=== PATIENT | female | born 1960 | race Caucasian/White ===

== ENCOUNTER 2025-07-29 00:30 | Day surgery (SDC) | payer BC, SELFPAY ==
[2025-07-16 09:29] VITALS: BMI 27.4
--- OUTSIDE RECORDS SUMMARY | 2025-07-29 00:33 | XMS_ITS | Clinical Summary ---
Author Organization [facility] Address [address] [place] [address] Care Team Providers Care Bread Wrapping Machine Feeder Name Role Phone Radha Galeano DO Unavailable [phone] Source Comments [facility],non-owned Affiliates and Associated Physician Practices is amultiple site organization consisting of ambulatory clinics and hospital sitesin [place], [place], [place] and [place]. This disclosure is being madepursuant to the Care Everywhere program and may not contain all information available regarding this patient. Last updated 18.[facility] Allergies No known active allergies Medications * Be aware that medications may not be up to date on this document. Alwaysverify current medications with the patient. loteprednol (Lotemax) 0.5 % ophthalmic gel Instill into right eye as directed 04/27/2023 Active [place]-3 Fatty Acids (fish oil) 1000 MG capsule Take 1 (one) capsule by mouth once daily 06/30/2022 Active Multiple Vitamins-Minera ls (WOMENS 50+ MULTI VITAMIN PO) Take 1 tablet by mouth once daily 06/30/2022 Active Active Problems No known active problems Family History Medical History Relation Name Comments Other Father asbestosis Relation Name Status Comments Father Social History Tobacco Use Types Packs/Day Years Used Date Smoking Tobacco: Never Passive Smoke Exposure: Yes Smokeless Tobacco: Never Tobacco Cessation:Counseling Given: Not Answered Alcohol Use Standard Drinks/Week Comments Yes 0 (1 standard drink = 0.6 oz pur e alcohol) 2/Monthly PHQ-2 Answer Date Recorded Patient Health Questionnaire-2 Score 0 08/13/2023 Comments No Sex and Gender Information Value Date Recorded Sex Assigned at Not on file Legal Sex Female 11:18 AM CDT Gender Identity Not on file Sexual Orientation Not on file Last Filed Vital Signs Vital Sign Reading Time Taken Comments Blood Pressure 110/82 08/14/2023 10:41 AM CDT Pulse 70 10/10/2022 10:12 AM SWIMMING PROFESSOR Temperature 35.9 C (96.7 F) 08/14/2023 10:41 AM CDT Respiratory Rate - - Oxygen Saturation 98% 10/10/2022 10:12 AM SWIMMING PROFESSOR Inhaled Oxygen Concentration - - Weight 72.8 kg (160 lb 9.6 oz) 08/14/2023 10:41 AM CDT Height 162.6 cm (5' 4.02) 08/14/2023 10:41 AM C DT Body Mass Index 27.55 08/14/2023 10:41 AM CDT Plan of Treatment Health Maintenance Due Date Last Done Comments COLOGUARD (AGES 45-75) - COL ON CA SCREENING 1961 COLON MONITORING 1961 COLONOSCOPY - COLON CA SCREENING 1961 CT COLONOGRAPHY - COLON CA SCREENING 1961 Colorectal Cancer Screening 1961 FIT - COLON CA SCREENING 1961 FLEX SIG - COLON CA SCREENING 1961 LIPID TESTING 1961 MAMMOGRAM 1961 HIV SCREENING 1976 HEPATITIS C SCREENING 04/21/1979 DTAP/TDAP/TD VACCINES (1 - Tdap) 1980 PAP SMEAR 1982 PNEUMOCOCCAL VACCINE 50+ (1 of 1 - PCV) 2011 ZOSTER VACCINE (1 of 2) 2011 SCREENING FOR DIABETES 03/28/2022 DEPRESSION SCREENING 11/13/2024 08/14/2023 COVID-19 VACCINE (1 - 2023-2 5 season) 2025 INFLUENZA VACCINE (#1) 2025 Respiratory Syncytial Virus (RSV) Vaccine Pt: or over 60 yrs (1 - 1-dose 75+ series) 2036 HEPATITIS B VACCINE Aged Out No longe r eligible based on patient's age to complete this topic HIB VACCINE Aged Out No longer eligi ble based on patient's age to complete this topic HPV VACCINE Aged Out No longer eligi ble based on patient's age to complete this topic MENINGOCOCCAL (Group B) VACC INE SHARED DECISION-MAKING Aged Out No longer eligibl e based on patient's age to complete this topic MENINGOCOCCAL GROUPS A/C/Y/W VACCINE Aged Out No longer eligible b ased on patient's age to complete this topic Insurance EM ANTHEM Care Teams Bread Wrapping Machine Feeder Relationship Specialty Start Date End Date Radha Galeano DO [address] [facility] [address] [place] [address] Cardiovascular Disease 07/05/22
--- OUTSIDE RECORDS SUMMARY | 2025-07-29 00:33 | XMS_ITS | Clinical Summary ---
Author Organization [facility] Address [facility] [place] [address] Care Team Providers Care Tire Care Manager Name Role Phone None, Provider MD Primary Care Provider Unavaila ble Social History Tobacco Use Types Packs/Day Years Used Date Smoking Tobacco: Never Assessed Comments Unknown Sex and Gender Information Value Date Recorded Sex Assigned at Not on file Legal Sex Female 7:07 PM CDT Gender Identity Not on file Sexual Orientation Not on file Plan of Treatment Health Maintenance Due Date Last Done Comments Colorectal Cancer Screening Colonoscopy (10 Years) 1961 Annual Physical 1964 Hepatitis C 1979 DTaP, Tdap and Td Vaccines (1 - Tdap) 1980 Pneumococcal Vaccine: 50+ Years (1 of 1 - PCV) 2011 Zoster Vaccines (1 of 2) 2011 Cervical Cancer Screening Pap Smear (Age 30 to 64) Every 3 Years 07/22/2023 07/22/2020 COVID-19 Vaccine ( season) 2025 Cervical Cancer Screening Pap with HPV Testing (Age 30 to 64) Every 5 Years 07/22/2025 07/22/2020 Cervical Cancer Screening with HPV 07/22/2025 Mammogram Screening 03/11/2027 03/11/2025, 02/15/2024, 10/11/2022, Additional history exists RSV Immunization or 60+ Years (1 - 1-dose 75+ series) 2036 Meningococcal B Vaccine Aged Out No l onger eligible based on patient's age to complete this topic Meningococcal Vaccine Aged Out No petra jody eligible based on patient's age to complete this topic RSV Immunizations Under 20 Months Aged Out No longer eligible based on patient's age to complete this topic Procedures Procedure Name Priority Date/Time Associated Diagnosis Comments MG SCREENING W NAVA NIGHAT DIGI Routine 03/11/2025 12:39 PM CDT Encounter for screening mammogram for malignant neoplasm of breast HPV MRNA E6/E7 Routine 07/22/2020 9:45 AM CDT CYTOPATH CERV/VAG THIN LAYER Routine 07/22/2020 12:00 AM CDT from Last 3 Months or Most Recently Relevant to Health Maintenance Results * MG SCREENING W NAVA NIGHAT DIGI (03/11/2025 12:39 PM CDT) Anatomical Region Laterality Modality Breast Bilateral Mammography 03/11/2025 3:48 PM CDT Impressions 03/11/2025 3:49 PM CDT IMPRESSION: No suspicious mammographic findings. Recommendation: 1. Routine Screening, Bilateral Assessment: ACR BI-RADS 2 - BENIGN FINDING(S) Ordered By: MARGARET PHELPS Interpreted By: Fermín Alvarez, 03/11/2025 3:48 PM Narrative 03/11/2025 3:49 [place] [address] Examination: Screening bilateral mammogram Exam Date/Time: 03/11/2025 12:20 PM Clinical history: No current complaints. Comparison: 02/15/2024 Technique: Digital screening mammography of both breasts was performed. Breast tomosynthesis acquisitions were obtained and reviewed. This study was read with the assistance of a computer-aided detection system. Tissue density: There are scattered areas of fibroglandular density. Findings: No suspicious masses, malignant appearing calcifications, skin thickening or other abnormalities are present. No significant change from the prior exam. us Margaret Phelps MD MAMMO Final Resul t * HPV MRNA E6/E7 (07/22/2020 9:45 AM CDT) HPV MRNA E6/E7 Not Detected NOT DETECTED 07/28/2020 9:40 AM CDT [employer] LORETTA GOMEZ Comment: This test was performed using the APTIMA(R) HPV Assay ([employer] This assay detects E6/E7 viral messenger RNA (mRNA) from 14 high-risk HPV types (16,18,31,33,35,39,45,51, 52,56,58,59,66,68). For additional information please refer to: http://education.[facility]/faq/IOH341j1 (This link is being provided for informational/ educational purposes only.) The analytical performance characteristics of this assay have been determined [place] The modifications have not been cleared or approved by the FDA. This assay has been validated pursuant to the CLIA regulations and is used for clinical purposes. Test Performed by [facility], [facility], [address] [place] [address] Markie Jones M.D., Ph.D., Director of Laboratories , CLIA [id number] 07/22/2020 9:45 AM CDT us Margaret Phelps MD PATHOLOGY/CYTOLOGY ORDERABL ES Final Result [facility] , * Cytopath Cerv/Vag Thin Layer (07/22/2020 12:00 AM CDT) Pathologist [facility] COPATH REPORT [place] [phone] Department of Pathology Pathology Report Gynecological Cytology Report Patient Name: TERESA DOZIER : 1960 (Age: 60) [facility] Gender: F Collected Date: 07/22/2020 [facility] Rec #: [id number] Date Received: 07/23/2020 Date Reported: 07/28/2020 Provider: MARGARET PHELPS MD Other Case Numbers [id number] Final Cytologic Diagnosis Satisfactory for evaluation. Endocervical component present. Negative for Intraepithelial Lesion or Malignancy. Atrophic pattern. High-risk HPV mRNA E6/E7 by Aptima assay (performed at [employer]) is reported as NOT DETECTED (see separate report for details). Electronically Signed Out By Imtiaz Weir Source of Specimen(s) Cervical, Thin Prep Clinical History Screening, last Pap 04/14/17 wnl. Z12.4 Date of Last Menstrual Period: 11/20/13 Billing Fee Code(s): A: [address] [facility] 07/22/2020 07/23/2020 7:2 8 AM CDT Comment:CERVICAL, THIN PREP us Margaret Phelps MD PATHOLOGY/CYTOLOGY ORDERABL ES Final Result [facility] () [facility] [address] [place] [address], from Last 3 Months or Most Recently Relevant to Health Maintenance Insurance [facility] Member Subscriber Plan / Payer (Ef fective 2016-Present) Name:Teresa Dozier Relation to Subscriber:Self Name:Teresa Dozier Payer ID:Not on file Group ID:[id number] Type:Not on file Address: [facility] [id number] [place] [address] Care Teams Tire Care Manager Relationship Specialty Start Date End Date None, Provider, PCP - General 06/08/20
[2025-07-29 07:19] VITALS: BP 149/88; PULSE 83; RESP 17; TEMP 36.5; O2SAT 99; BMI 28.0
[2025-07-29] MEDS: LACTATED RINGERS 1,000 ML 150 ML IV CONT (07:29)
--- NOTE | 2025-07-29 07:59 | WPDANESEPPF ---
Anes - Initial Pre Proc Eval Procedure: Operation Date: 07/29/25 08:30 Proposed Procedures p Screening Colonoscopy - Alonzo Lawrence DO Date/Time: 07/29/25 07:59 Surgeon: Alonzo Lawrence DO Pre Op Diagnosis: Neoplasm screening Patient Data Age: 65 Gender: F Height: 1.63 m Weight: 74.2 kg Last Vital Signs Temp 97.7 F 07/29/25 07:19 Pulse 83 07/29/25 07:19 Resp 17 07/29/25 07:19 BP 149/88 H 07/29/25 07:19 Pulse Ox 99 07/29/25 07:19 O2 Del Method Room Air 07/29/25 07:19 Allergies Allergy/AdvReac Type Severity Reaction Status Date / Time No Known Allergies Allergy Verified 07/29/25 07:18 Home Medications ?Medication ?Instructions ?Recorded ?Confirmed ?Type qkshjvmyabicjqlc-obbgkopoekqprpw-pqayuwynr 1 tablet PO Q10-12H PRN sinus 07/16/25 07/29/25 History 2 mg-30 mg-200 mg tablet (Advil symptoms Allergy Sinus) multivitamin (Daily Multi-Vitamin 1 tablet PO DAILY 07/16/25 07/29/25 History tablet) Patient hx anesthesia problems: none Family hx anesthesia problems: none Results Review: All pre-operative results and documents have been reviewed as part of the pre-operative evaluation. [facility] Social History Social History Alcohol intake: current Alcohol use details: 1-2 per month Living arrangements: with family Spiritual care concerns: No Anes - Eval Final PreProcedure Day of Procedure 07/29/25 07:59 Patient weight: normal Lungs: normal air movement Airway: Mallampati scale class II Neurological: alert and oriented Last oral intake: >/= 8 hours ASA classification: I Emergent: no Anesthetic plan: proceed Anesthesia type and monitoring: general GIVS and standard monitoring Results Review: All pre-operative results and documents have been reviewed as part of the pre-operative evaluation. Active w walking/biking/caring for grandkids, no cp or sob. Informed Consent: The patient's anesthetic plan and its attendant risks and benefits were discussed with the patient/family/POA. Questions were solicited and answers provided to the satisfaction of the patient/family/POA.
--- NOTE | 2025-07-29 08:40 | PM.IMHP ---
H&P: HPI History of Present Illness Date/Time: 07/29/25 08:40 Chief Complaint: screening for colorectal cancer Narrative: this is a 65-year-old woman who presents for colonoscopy. She has never had a colonoscopy before. She denies any hematochezia or melena. She denies family history of colon cancer. Review of Systems Review of Systems: All systems reviewed & are unremarkable except as noted in HPI and below Constitutional: Constitutional: Denies chills, Denies fever(s), Denies headache(s) and Denies weight loss Eyes: Eyes: Denies change in vision ENT: Denies dizziness, Denies headache(s), Denies neck mass and Denies throat swelling Cardiovascular: Cardiovascular: Denies chest pain, Denies lightheadedness and Denies dyspnea Respiratory: Respiratory: Denies cough, Denies dyspnea and Denies wheezing Gastrointestinal: Gastrointestinal: Denies abdominal pain, Denies change in bowel habits, Denies nausea and Denies vomiting Genitourinary: Genitourinary: Denies hematuria and Denies dysuria Musculoskeletal: Musculoskeletal: Reports as per HPI Integumentary/Breasts: Skin/Breast: Reports as per HPI Neurologic: Denies dizziness and Denies headache(s) Allergic/Immunologic: Allergic/Immunologic: Denies throat swelling and Denies wheezing [facility] Social History Social History Alcohol intake: current Alcohol use details: 1-2 per month Living arrangements: with family Spiritual care concerns: No Meds Home Medications and Allergies Home Medications ?Medication ?Instructions ?Recorded ?Confirmed ?Type oaldasubeoifxctv-lbziprcoiudjfrg-wybrhrgtg 1 tablet PO Q10-12H PRN sinus 07/16/25 07/29/25 History 2 mg-30 mg-200 mg tablet (Advil symptoms Allergy Sinus) multivitamin (Daily Multi-Vitamin 1 tablet PO DAILY 07/16/25 07/29/25 History tablet) Allergies Allergy/AdvReac Type Severity Reaction Status Date / Time No Known Allergies Allergy Verified 07/29/25 07:18 Vital Signs Vital Signs - 24 hr 07/29/25 07:19 Temperature 97.7 F Pulse Rate 83 Respiratory Rate 17 Blood Pressure 149/88 H Pulse Oximetry 99 Oxygen Delivery Room Air Exam Const: General: no acute distress and alert Orientation/consciousness: patient oriented x3 HENMT: Head: normocephalic and atraumatic Ears: hearing grossly normal bilaterally Face/Nose/Sinus: Normal nares present Mouth: Yes Normal oral and palatal mucosa present Eyes: Periorbital: periorbital findings normal Sclera: sclerae normal EOM: EOMs intact bilaterally Neck: Neck: normal visual inspection, no lymphadenopathy and trachea midline Chest: Chest palpation & inspection: normal inspection of the chest Resp: Effort & Inspection: normal respiratory effort Auscultation: clear to auscultation bilaterally Cardio: Jugular venous distension: no JVD Rate: regular rate Rhythm: regular rhythm Heart sounds: S1 normal heart sound present and S2 normal heart sound present Peripheral pulses: Peripheral pulses 2+ throughout GI: Inspection: normal to inspection GI Palp: Yes Soft to palpation, No Tenderness to palpation present (GI), No Guarding due to palpation present (GI) and No Rebound tenderness present Percussion: Yes normal to percussion Auscultation: normal bowel sounds : General: Yes no CVA tenderness Back/Spine/Pelvis: Back: no CVA tenderness Neuro: General: patient oriented x3, no focal motor deficits and CN's II-XI intact bilaterally Cognition (Neuro): normal cognition Speech: normal speech Motor exam (neuro): 5/5 motor strength present throughout Extrem: General: capillary refill normal and no clubbing, cyanosis or edema Assessment and Plan Assessment and plan (1) Screening for colorectal cancer: Code(s): Z12.11 - Encounter for screening for malignant neoplasm of colon; Z12.12 - Encounter for screening for malignant neoplasm of rectum Status: Acute Assessment and Plan: I have recommended colonoscopy. I have discussed the procedure, risks, benefits, and alternatives. Questions were answered. Patient is agreeable to proceed.
[2025-07-29 09:08] VITALS: BP 119/74; PULSE 71; RESP 17; O2SAT 97
[2025-07-29 09:18] VITALS: BP 125/74; PULSE 79; RESP 16; O2SAT 98
[2025-07-29 09:28] VITALS: BP 143/96; PULSE 80; RESP 19; O2SAT 98
== END 2025-07-29 09:32 | disposition home or self-care (01) ==
PROVIDERS: PCP Physician Assistant; Visit Provider Surgery
PROC: 0DJD8ZZ Inspection of Lower Intestinal Tract, Via Natural or Artificial Opening Endoscopic (ICD-10-PCS; CPT 45378; principal; 2025-07-29 08:30)
DX: Z12.11 Encounter for screening for malignant neoplasm of colon (principal); K57.30 Diverticulosis of large intestine without perforation or abscess without bleeding
CPT/HCPCS: 45378; J2003; J2704; J7120